=== PATIENT | female | born 1990 | race Caucasian/White ===

== ENCOUNTER 2017-01-31 18:32 | Emergency (ER) | payer MEDICAID ==
[2014-08-22 07:50] VITALS: BMI 32.8
[~2017-01-31 18:32] MED LIST: IBUPROFEN600 MG PO; PERCOCET 5-3251 TAB PO
[2017-01-31 19:54] LABS: BASOPHILS 0.1 % (0-2); EOSINOPHILS 3.4 % (0-7); IMMATURE GRANULOCYTES 0.3 % (0-5); LYMPHOCYTES 29.9 % (15-50); MCH 30.3 pg (26.0-34.0); MCHC 33.3 g/dL (31.0-37.0); MCV 90.9 fL (80.0-100.0); MEAN PLATELET VOLUME 10.2 fL (7.4-10.4); MONOCYTES 9.5 % (2-11); NEUTROPHILS 56.8 % (40-80); PLATELET COUNT 267 10x3/uL (130-400); RBC 4.29 10x6/uL (4.00-5.40); RDW 12.5 % (11.5-14.5); WBC 10.2 10x3/uL (4.8-10.8)
[2017-01-31 20:02] LABS: HCG SERUM POSITIVE (NEGATIVE)
[2017-01-31 20:11] LABS: ALBUMIN 3.6 g/dL (3.4-5.0); ALKALINE PHOSPHATASE 58 U/L (46-116); ALT (SGPT) 16 U/L (10-68); BILIRUBIN - TOTAL 0.43 mg/dL (0.2-1.3); CALC OSMOLALITY 276 mosm/kg (275-300); CARBON DIOXIDE 31.3 mmol/L (21.0-32.0); CHLORIDE - SERUM 103 mmol/L (98-107); CREATININE - SERUM 0.6 mg/dL (0.6-1.3); GLUCOSE 87 mg/dL (74-106); POTASSIUM - SERUM 3.7 mmol/L (3.5-5.1); PROTEIN - SERUM 7.5 g/dL (6.4-8.2); SODIUM 139 mmol/L (136-145); UREA NITROGEN 12 mg/dL (7-18); eGFR NON AFRICAN AMERICAN > 90 mL/min (90-120)
[2017-01-31 20:27] LABS: HCG - QUANTITATIVE (MATERNAL) 32593 mIU/mL
== END 2017-01-31 20:15 | disposition home or self-care (01) ==
LOC: D.ER 18:32
PROVIDERS: Family Medicine
DX: O20.0 Threatened abortion (principal)

== ENCOUNTER 2017-03-22 14:36 | Emergency (ER) | payer MEDICAID ==
[2014-08-22 07:50] VITALS: BMI 32.8
[2017-03-22 19:17] LABS: HCG URINE POSITIVE (NEGATIVE)
[2017-03-22 20:58] LABS: BASOPHILS 0.1 % (0-2); EOSINOPHILS 1.1 % (0-7); HEMATOCRIT 36.2 % (36.0-48.0); HEMOGLOBIN 12.3 g/dL (12-16); IMMATURE GRANULOCYTES 0.2 % (0-5); LYMPHOCYTES 28.1 % (15-50); MCH 30.3 pg (26.0-34.0); MCV 89.2 fL (80.0-100.0); MEAN PLATELET VOLUME 9.9 fL (7.4-10.4); MONOCYTES 6.6 % (2-11); NEUTROPHILS 63.9 % (40-80); PLATELET COUNT 246 10x3/uL (130-400); RBC 4.06 10x6/uL (4.00-5.40); RDW 12.7 % (11.5-14.5); WBC 10.3 10x3/uL (4.8-10.8)
[2017-03-22 21:29] LABS: ALBUMIN 3.5 g/dL (3.4-5.0); ALKALINE PHOSPHATASE 51 U/L (46-116); ALT (SGPT) 26 U/L (10-68); CALC OSMOLALITY 277 mosm/kg (275-300); CALCIUM 9.1 mg/dL (8.5-10.1); CARBON DIOXIDE 27.9 mmol/L (21.0-32.0); CHLORIDE - SERUM 104 mmol/L (98-107); CREATININE - SERUM 0.5 mg/dL (0.6-1.3); GLUCOSE 85 mg/dL (74-106); POTASSIUM - SERUM 3.6 mmol/L (3.5-5.1); PROTEIN - SERUM 7.3 g/dL (6.4-8.2); SODIUM 141 mmol/L (136-145); UREA NITROGEN 8 mg/dL (7-18); eGFR NON AFRICAN AMERICAN > 90 mL/min (90-120)
[2017-03-22 21:56] LABS: HCG - QUANTITATIVE (MATERNAL) 30651 mIU/mL
== END 2017-03-22 22:49 | disposition home or self-care (01) ==
LOC: D.ER 14:36
PROVIDERS: Emergency Medicine
DX: O26.891 Other specified pregnancy related conditions, first trimester (principal); Z3A.13 13 weeks gestation of pregnancy; R10.9 Unspecified abdominal pain; V43.62XA Car passenger injured in collision with other type car in traffic accident, initial encounter; Y93.89 Activity, other specified; Y92.410 Unspecified street and highway as the place of occurrence of the external cause; M54.5 Low back pain

== ENCOUNTER 2017-04-05 08:42 | Emergency (ER) | payer MEDICAID ==
[2014-08-22 07:50] VITALS: BMI 32.8
[2017-04-05 09:14] LABS: BASOPHILS 0.1 % (0-2); EOSINOPHILS 1.4 % (0-7); HEMATOCRIT 37.1 % (36.0-48.0); HEMOGLOBIN 12.3 g/dL (12-16); IMMATURE GRANULOCYTES 0.3 % (0-5); LYMPHOCYTES 25.7 % (15-50); MCH 30.1 pg (26.0-34.0); MCHC 33.2 g/dL (31.0-37.0); MCV 90.7 fL (80.0-100.0); MEAN PLATELET VOLUME 9.6 fL (7.4-10.4); MONOCYTES 7.7 % (2-11); NEUTROPHILS 64.8 % (40-80); PLATELET COUNT 224 10x3/uL (130-400); RBC 4.09 10x6/uL (4.00-5.40); RDW 12.7 % (11.5-14.5); WBC 7.3 10x3/uL (4.8-10.8)
[2017-04-05 09:56] LABS: APPEARANCE SLT CLOUDY (CLEAR); BILIRUBIN NEGATIVE (NEGATIVE); COLOR DK YELLOW (YELLOW); GLUCOSE NEGATIVE (NEGATIVE); KETONE NEGATIVE (NEGATIVE); NITRITE POSITIVE (NEGATIVE); PROTEIN NEGATIVE (NEGATIVE)
[2017-04-05 09:57] LABS: BACTERIA MODERATE /hpf (NONE SEEN); EPITHELIAL CELLS 0-5 /hpf (0-5); WHITE CELLS - URINE 0-5 /hpf (0-5)
== END 2017-04-05 13:17 | disposition home or self-care (01) ==
LOC: D.ER 08:42
PROVIDERS: Emergency Medicine
DX: N39.0 Urinary tract infection, site not specified (principal); R51 Headache; W19.XXXA Unspecified fall, initial encounter; Y93.89 Activity, other specified; Y92.019 Unspecified place in single-family (private) house as the place of occurrence of the external cause

== ENCOUNTER 2017-04-14 11:54 | Emergency (ER) | payer MEDICAID ==
[2014-08-22 07:50] VITALS: BMI 32.8
[2017-04-14 13:06] LABS: HCG URINE POSITIVE (NEGATIVE)
[2017-04-14 13:21] LABS: APPEARANCE CLEAR (CLEAR); BACTERIA FEW /hpf (NONE SEEN); BILIRUBIN NEGATIVE (NEGATIVE); COLOR YELLOW (YELLOW); EPITHELIAL CELLS 0-5 /hpf (0-5); GLUCOSE NEGATIVE (NEGATIVE); KETONE MODERATE mg/dL (NEGATIVE); NITRITE NEGATIVE (NEGATIVE); PROTEIN NEGATIVE (NEGATIVE); UROBILINOGEN NORMAL (NORMAL); WHITE CELLS - URINE 0-5 /hpf (0-5)
[2017-04-14 13:22] LABS: MUCUS <1+ /lpf (NONE SEEN)
== END 2017-04-14 13:35 | disposition home or self-care (01) ==
LOC: D.ER 11:54
PROVIDERS: Nurse Practitioner Family
DX: Z32.01 Encounter for pregnancy test, result positive (principal)

== ENCOUNTER 2017-05-18 16:38 | Emergency (ER) | payer MEDICAID ==
[2014-08-22 07:50] VITALS: BMI 32.8
[2017-05-18 17:34] LABS: BASOPHILS 0.1 % (0-2); EOSINOPHILS 0.1 % (0-7); HEMATOCRIT 39.2 % (36.0-48.0); IMMATURE GRANULOCYTES 0.4 % (0-5); MCH 30.2 pg (26.0-34.0); MCHC 33.2 g/dL (31.0-37.0); MCV 91.2 fL (80.0-100.0); MEAN PLATELET VOLUME 10.3 fL (7.4-10.4); MONOCYTES 4.1 % (2-11); NEUTROPHILS 83.3 % (40-80); PLATELET COUNT 255 10x3/uL (130-400); RDW 12.6 % (11.5-14.5); WBC 14.8 10x3/uL (4.8-10.8)
[2017-05-18 17:47] LABS: ALBUMIN 3.4 g/dL (3.4-5.0); ALKALINE PHOSPHATASE 67 U/L (46-116); ALT (SGPT) 23 U/L (10-68); BILIRUBIN - TOTAL 0.69 mg/dL (0.2-1.3); CALC OSMOLALITY 279 mosm/kg (275-300); CALCIUM 8.9 mg/dL (8.5-10.1); CARBON DIOXIDE 25.6 mmol/L (21.0-32.0); CHLORIDE - SERUM 105 mmol/L (98-107); CREATININE - SERUM 0.7 mg/dL (0.6-1.3); GLUCOSE 116 mg/dL (74-106); POTASSIUM - SERUM 4.1 mmol/L (3.5-5.1); PROTEIN - SERUM 7.8 g/dL (6.4-8.2); SODIUM 141 mmol/L (136-145); UREA NITROGEN 8 mg/dL (7-18); eGFR NON AFRICAN AMERICAN > 90 mL/min (90-120)
[2017-05-18 18:24] LABS: APPEARANCE HAZY (CLEAR); BACTERIA MANY /hpf (NONE SEEN); BILIRUBIN NEGATIVE (NEGATIVE); COLOR DK YELLOW (YELLOW); EPITHELIAL CELLS 0-5 /hpf (0-5); GLUCOSE NEGATIVE (NEGATIVE); KETONE MODERATE mg/dL (NEGATIVE); NITRITE POSITIVE (NEGATIVE); PROTEIN TRACE mg/dL (NEGATIVE); RED CELLS - URINE 0-5 /hpf (0-5); SPECIFIC GRAVITY 1.025 (1.005-1.020); UROBILINOGEN NORMAL (NORMAL)
== END 2017-05-18 19:20 | disposition home or self-care (01) ==
LOC: D.ER 16:38
PROVIDERS: Emergency Medicine
DX: O26.891 Other specified pregnancy related conditions, first trimester (principal); Z3A.13 13 weeks gestation of pregnancy; Y04.2XXA Assault by strike against or bumped into by another person, initial encounter; Y93.89 Activity, other specified; Y92.019 Unspecified place in single-family (private) house as the place of occurrence of the external cause

== ENCOUNTER → 2017-06-15 17:35 | Outpatient (CLI) | payer MEDICAID ==
[2014-08-22 07:50] VITALS: BMI 32.8
[2017-06-15 18:43] LABS: APPEARANCE CLEAR (CLEAR); BILIRUBIN NEGATIVE (NEGATIVE); COLOR YELLOW (YELLOW); GLUCOSE NEGATIVE (NEGATIVE); KETONE NEGATIVE (NEGATIVE); NITRITE NEGATIVE (NEGATIVE); PROTEIN NEGATIVE (NEGATIVE); SPECIFIC GRAVITY 1.015 (1.005-1.020); UROBILINOGEN NORMAL (NORMAL)
== END | disposition home or self-care (01) ==
LOC: D.LDO 17:35
PROVIDERS: Obstetrics & Gynecology
DX: O26.892 Other specified pregnancy related conditions, second trimester (principal); Z3A.24 24 weeks gestation of pregnancy

== ENCOUNTER → 2017-07-07 09:15 | Outpatient (CLI) | payer MEDICAID ==
[2014-08-22 07:50] VITALS: BMI 32.8
== END | disposition home or self-care (01) ==
LOC: D.LDO 09:15
DX: O26.893 Other specified pregnancy related conditions, third trimester (principal); Z3A.28 28 weeks gestation of pregnancy

== ENCOUNTER → 2017-08-02 18:54 | Outpatient (CLI) | payer MEDICAID ==
[2014-08-22 07:50] VITALS: BMI 32.8
[2017-08-02 20:19] LABS: APPEARANCE CLEAR (CLEAR); BILIRUBIN NEGATIVE (NEGATIVE); COLOR YELLOW (YELLOW); GLUCOSE NEGATIVE (NEGATIVE); KETONE NEGATIVE (NEGATIVE); NITRITE NEGATIVE (NEGATIVE); PROTEIN NEGATIVE (NEGATIVE); UROBILINOGEN NORMAL (NORMAL)
[2017-08-02 20:20] LABS: EPITHELIAL CELLS OCC /hpf (0-5); RED CELLS - URINE OCC /hpf (0-5); WHITE CELLS - URINE 0-5 /hpf (0-5)
[2017-08-02 20:21] LABS: BACTERIA FEW /hpf (NONE SEEN)
== END | disposition home or self-care (01) ==
LOC: D.LDO 18:54
PROVIDERS: Obstetrics & Gynecology
DX: O26.899 Other specified pregnancy related conditions, unspecified trimester (principal); Z3A.00 Weeks of gestation of pregnancy not specified

== ENCOUNTER → 2017-08-11 11:15 | Outpatient (CLI) | payer MEDICAID ==
[2014-08-22 07:50] VITALS: BMI 32.8
[2017-08-11 13:40] LABS: APPEARANCE CLEAR (CLEAR); BILIRUBIN NEGATIVE (NEGATIVE); COLOR YELLOW (YELLOW); GLUCOSE NEGATIVE (NEGATIVE); KETONE NEGATIVE (NEGATIVE); NITRITE NEGATIVE (NEGATIVE); PROTEIN NEGATIVE (NEGATIVE)
== END | disposition home or self-care (01) ==
LOC: D.LDO 11:15
PROVIDERS: Obstetrics & Gynecology
DX: O26.893 Other specified pregnancy related conditions, third trimester (principal); R10.30 Lower abdominal pain, unspecified

== ENCOUNTER → 2017-08-11 17:40 | Outpatient (CLI) | payer MEDICAID ==
[2014-08-22 07:50] VITALS: BMI 32.8
== END | disposition home or self-care (01) ==
LOC: D.LDO 17:40
DX: O26.893 Other specified pregnancy related conditions, third trimester (principal); Z3A.33 33 weeks gestation of pregnancy

== ENCOUNTER → 2017-08-19 18:41 | Outpatient (CLI) | payer MEDICAID ==
[2014-08-22 07:50] VITALS: BMI 32.8
[~2017-08-19 18:41] MED LIST changes: +TYLENOL W/CODEI1 TAB PO; +VOLTAREN75 MG PO
[2017-08-19 20:07] LABS: APPEARANCE CLEAR (CLEAR); BILIRUBIN NEGATIVE (NEGATIVE); COLOR YELLOW (YELLOW); GLUCOSE NEGATIVE (NEGATIVE); KETONE NEGATIVE (NEGATIVE); NITRITE NEGATIVE (NEGATIVE); PROTEIN NEGATIVE (NEGATIVE); SPECIFIC GRAVITY 1.025 (1.005-1.020)
[2017-08-19 20:09] LABS: RED CELLS - URINE 0-5 /hpf (0-5); WHITE CELLS - URINE 0-5 /hpf (0-5)
[2017-08-19 20:10] LABS: BACTERIA MANY /hpf (NONE SEEN); MUCUS <1+ /lpf (NONE SEEN)
== END | disposition home or self-care (01) ==
LOC: D.LDO 18:41
PROVIDERS: Obstetrics & Gynecology
DX: O26.853 Spotting complicating pregnancy, third trimester (principal); Z3A.35 35 weeks gestation of pregnancy

== ENCOUNTER 2017-08-22 20:00 | Outpatient (CLI) | payer MEDICAID ==
[2014-08-22 07:50] VITALS: BMI 32.8
[~2017-08-22 20:00] MED LIST changes: -TYLENOL W/CODEI1 TAB PO; -VOLTAREN75 MG PO
[2017-08-22 21:06] LABS: APPEARANCE CLEAR (CLEAR); BILIRUBIN NEGATIVE (NEGATIVE); COLOR YELLOW (YELLOW); GLUCOSE NEGATIVE (NEGATIVE); KETONE NEGATIVE (NEGATIVE); NITRITE NEGATIVE (NEGATIVE); PROTEIN NEGATIVE (NEGATIVE); SPECIFIC GRAVITY 1.015 (1.005-1.020); UROBILINOGEN NORMAL (NORMAL)
[2017-08-22 21:08] LABS: RED CELLS - URINE OCC /hpf (0-5); WHITE CELLS - URINE OCC /hpf (0-5)
== END 2017-08-22 21:27 ==
LOC: D.LDO 20:00
PROVIDERS: Obstetrics & Gynecology
DX: O26.893 Other specified pregnancy related conditions, third trimester (principal); Z3A.34 34 weeks gestation of pregnancy

== ENCOUNTER → 2017-09-09 21:54 | Outpatient (CLI) | payer MEDICAID ==
[2014-08-22 07:50] VITALS: BMI 32.8
[~2017-09-09 21:54] MED LIST changes: +TYLENOL W/CODEI1 TAB PO; +VOLTAREN75 MG PO
== END | disposition home or self-care (01) ==
LOC: D.LDO 21:54
DX: O26.893 Other specified pregnancy related conditions, third trimester (principal); Z3A.38 38 weeks gestation of pregnancy

== ENCOUNTER 2017-09-12 19:26 | Outpatient (CLI) | payer MEDICAID ==
[2014-08-22 07:50] VITALS: BMI 32.8
[~2017-09-12 19:26] MED LIST changes: -TYLENOL W/CODEI1 TAB PO; -VOLTAREN75 MG PO
[2017-09-12 20:18] LABS: APPEARANCE CLEAR (CLEAR); BILIRUBIN NEGATIVE (NEGATIVE); COLOR YELLOW (YELLOW); GLUCOSE NEGATIVE (NEGATIVE); KETONE NEGATIVE (NEGATIVE); NITRITE NEGATIVE (NEGATIVE); PROTEIN NEGATIVE (NEGATIVE); UROBILINOGEN NORMAL (NORMAL)
== END 2017-09-12 20:40 ==
LOC: D.LDO 19:26
PROVIDERS: Obstetrics & Gynecology
DX: O26.893 Other specified pregnancy related conditions, third trimester (principal); Z3A.38 38 weeks gestation of pregnancy

== ENCOUNTER → 2017-09-15 14:35 | Outpatient (CLI) | payer MEDICAID ==
[2014-08-22 07:50] VITALS: BMI 32.8
[~2017-09-15 14:35] MED LIST changes: +TYLENOL W/CODEI1 TAB PO; +VOLTAREN75 MG PO
[2017-09-15 15:37] LABS: APPEARANCE HAZY (CLEAR); BILIRUBIN NEGATIVE (NEGATIVE); COLOR YELLOW (YELLOW); GLUCOSE NEGATIVE (NEGATIVE); KETONE NEGATIVE (NEGATIVE); NITRITE NEGATIVE (NEGATIVE); PROTEIN NEGATIVE (NEGATIVE); SPECIFIC GRAVITY 1.015 (1.005-1.020)
[2017-09-15 15:44] LABS: MUCUS <1+ /lpf (NONE SEEN)
[2017-09-15 15:47] LABS: BACTERIA MODERATE /hpf (NONE SEEN); RED CELLS - URINE 0-5 /hpf (0-5)
== END | disposition home or self-care (01) ==
LOC: D.LDO 14:35
PROVIDERS: Obstetrics & Gynecology
DX: O26.853 Spotting complicating pregnancy, third trimester (principal); Z3A.38 38 weeks gestation of pregnancy

== ENCOUNTER → 2017-09-17 15:54 | Outpatient (CLI) | payer MEDICAID ==
[2014-08-22 07:50] VITALS: BMI 32.8
== END | disposition home or self-care (01) ==
LOC: D.LDO 15:54
DX: O26.893 Other specified pregnancy related conditions, third trimester (principal); Z3A.39 39 weeks gestation of pregnancy

== ENCOUNTER 2017-09-20 01:48 | Inpatient (IN) | payer MEDICAID ==
[~2017-09-20] VITALS: Ht 162.6 cm; Wt 84.4 kg
--- NOTE | ~2017-09-20 | DS ---
PATIENT:SAFIA ANDERSON :86 MEDICAL RECORD: [id number] DISCHARGE SUMMARY ADMISSION DATE: 09/20/17 DISCHARGE DATE: 09/21/17 DATE OF ADMISSION: 09/20/2017 DATE OF DISCHARGE: 09/21/2017 ADMISSION DIAGNOSIS: Term in labor. DISCHARGE DIAGNOSIS: Term , delivered. PROCEDURE: Vaginal delivery. ATTENDING: Raina Mixon MD HISTORY OF PRESENT ILLNESS: See the H&P. SUMMARY OF HOSPITALIZATION: The patient was admitted to the hospital and then had subsequent vaginal delivery without complication. The patient did well on the day #1 and was discharged home. The patient has been given standard precautions and plans on using an IUD for contraception. The fundus is found to be below the umbilicus and firm. She will follow up [facility] TRANSINT:[id number] Voice Confirmation ID: [id number] DOCUMENT ID: [id number] RAINA MIXON MD at 1803 CC: [id number] DICTATION DATE: 09/21/17 1234 INSPECTOR CASING: 09/21/17 1247 DIS IN 09/21/17 [place] [id number] [place] [id number]
--- NOTE | ~2017-09-20 | OP ---
PATIENT NAME: SAFIA ANDERSON MEDICAL RECORD: [id number] :[birth year] [facility] ADMISSION DATE:09/20/17 SURGEON: BEN MIXON MD DATE OF OPERATION: 09/20/2017 DELIVERY NOTE PREDELIVERY DIAGNOSIS: Mother at term. POSTDELIVERY DIAGNOSIS: Mother delivered at term. PROCEDURE: Induction of labor with vaginal delivery. ATTENDING: Ben Mixon MD ANESTHETIC: Continuous lumbar epidural. FINDINGS: Viable male infant, KEYON presentation, Apgars 9 and 9. Weight is still pending at the time of this dictation. Placenta is spontaneous and intact. First-degree laceration without repair. ESTIMATED BLOOD LOSS: 300 cc. DISPOSITION: Mother and recovered in the room. TRANSINT:[id number] Voice Confirmation ID: [id number] DOCUMENT ID: [id number] BEN MIXON MD at 1952 CC: [id number] DICTATION DATE: 09/20/17 1340 CUT IN WORKER: 09/20/17 [address] [facility] [address] [place] [address]
[~2017-09-20 01:48] MED LIST changes: -TYLENOL W/CODEI1 TAB PO; -VOLTAREN75 MG PO
[2017-09-20 04:32] VITALS: BP 119/78; Ht 162.6 cm; Wt 84.4 kg
[2017-09-20 04:43] LABS: HEMATOCRIT 34.1 % (36.0-48.0); MCH 27.5 pg (26.0-34.0); MCHC 32.3 g/dL (31.0-37.0); MCV 85.3 fL (80.0-100.0); MEAN PLATELET VOLUME 11.2 fL (7.4-10.4); RDW 13.3 % (11.5-14.5); WBC 9.7 10x3/uL (4.8-10.8)
[2017-09-20 07:00] LABS: UDS - AMPHET NEGATIVE QUAL (NEGATIVE); UDS - BARB NEGATIVE QUAL (NEGATIVE); UDS - BENZO NEGATIVE QUAL (NEGATIVE); UDS - COCAINE NEGATIVE QUAL (NEGATIVE); UDS - OPIATE NEGATIVE QUAL (NEGATIVE); UDS - PCP NEGATIVE QUAL (NEGATIVE); UDS - THC NEGATIVE QUAL (NEGATIVE)
[2017-09-20 07:13] LABS: APPEARANCE HAZY (CLEAR); BILIRUBIN NEGATIVE (NEGATIVE); COLOR DK YELLOW (YELLOW); GLUCOSE NEGATIVE (NEGATIVE); KETONE NEGATIVE (NEGATIVE); NITRITE NEGATIVE (NEGATIVE); PROTEIN NEGATIVE (NEGATIVE); RED CELLS - URINE OCC /hpf (0-5); SPECIFIC GRAVITY 1.015 (1.005-1.020); WHITE CELLS - URINE 0-5 /hpf (0-5)
[2017-09-20 07:14] LABS: BACTERIA MODERATE /hpf (NONE SEEN); CALCIUM OXALATE CRYSTALS 0-5 /hpf (NONE SEEN); MUCUS >1+ /lpf (NONE SEEN)
[2017-09-20 21:00] VITALS: BP 127/84
[2017-09-21 06:58] LABS: BASOPHILS 0.1 % (0-2); EOSINOPHILS 1.1 % (0-7); HEMOGLOBIN 9.4 g/dL (12-16); IMMATURE GRANULOCYTES 0.4 % (0-5); LYMPHOCYTES 27.3 % (15-50); MCH 26.8 pg (26.0-34.0); MCHC 31.3 g/dL (31.0-37.0); MCV 85.5 fL (80.0-100.0); MEAN PLATELET VOLUME 11.2 fL (7.4-10.4); MONOCYTES 8.4 % (2-11); NEUTROPHILS 62.7 % (40-80); PLATELET COUNT 174 10x3/uL (130-400); RBC 3.51 10x6/uL (4.00-5.40); RDW 13.3 % (11.5-14.5); WBC 11.2 10x3/uL (4.8-10.8)
[2017-09-21 07:12] VITALS: BP 116/71
[2017-09-21 07:31] LABS: RAPID PLASMA REAGIN Non Reactive (Non Reactive)
== END 2017-09-21 16:30 | disposition home or self-care (01) | DRG 775 ==
LOC: D.LD 01:48 → D.WS 04:00 → D.LD 04:00 → D.WS 18:00
PROVIDERS: Obstetrics & Gynecology
PROC: 10E0XZZ Delivery of Products of Conception, External Approach (ICD-10-PCS; principal; 2017-09-20)
DX: O70.0 First degree perineal laceration during delivery (principal); Z3A.39 39 weeks gestation of pregnancy; Z37.0 Single live birth

== ENCOUNTER 2017-11-12 17:47 | Emergency (ER) | payer MEDICAID ==
[~2017-11-12] VITALS: Ht 165.1 cm; Wt 72.7 kg
[2017-11-12 17:50] VITALS: Ht 165.1 cm; Wt 72.7 kg
[2017-11-12] MEDS ORDERED: TYLENOL W/CODEI1 TAB PO (19:38)
[2017-11-12] MEDS ORDERED: VOLTAREN75 MG PO (19:38)
[2017-11-12 20:28] VITALS: BP 123/79
== END 2017-11-12 20:29 | disposition home or self-care (01) ==
LOC: D.ER 17:47
DX: S82.002A Unspecified fracture of left patella, initial encounter for closed fracture (principal); V49.9XXA Car occupant (driver) (passenger) injured in unspecified traffic accident, initial encounter; Y93.89 Activity, other specified; Y92.410 Unspecified street and highway as the place of occurrence of the external cause; K21.9 Gastro-esophageal reflux disease without esophagitis

== ENCOUNTER 2018-02-22 18:36 | Inpatient (IN) | payer MEDICAID ==
[~2018-02-22] VITALS: Ht 165.1 cm; Wt 59.1 kg
[~2018-02-22 18:36] MED LIST changes: +TYLENOL W/CODEI1 TAB PO; +VOLTAREN75 MG PO
[2018-02-22 21:37] LABS: BASOPHILS 0.1 % (0-2); HEMATOCRIT 40.2 % (36.0-48.0); HEMOGLOBIN 13.3 g/dL (12-16); IMMATURE GRANULOCYTES 0.3 % (0-5); LYMPHOCYTES 25.1 % (15-50); MCH 29.3 pg (26.0-34.0); MCHC 33.1 g/dL (31.0-37.0); MCV 88.5 fL (80.0-100.0); MEAN PLATELET VOLUME 10.5 fL (7.4-10.4); MONOCYTES 6.4 % (2-11); NEUTROPHILS 67.1 % (40-80); RBC 4.54 10x6/uL (4.00-5.40); RDW 12.4 % (11.5-14.5); WBC 15.2 10x3/uL (4.8-10.8)
[2018-02-22 21:42] LABS: PLATELET COUNT 297 10x3/uL (130-400)
[2018-02-22 21:51] LABS: ALBUMIN 3.6 g/dL (3.4-5.0); ALKALINE PHOSPHATASE 58 U/L (46-116); ALT (SGPT) 19 U/L (10-68); BILIRUBIN - TOTAL 0.71 mg/dL (0.2-1.3); CALC OSMOLALITY 279 mosm/kg (275-300); CALCIUM 8.9 mg/dL (8.5-10.1); CARBON DIOXIDE 26.4 mmol/L (21.0-32.0); CHLORIDE - SERUM 104 mmol/L (98-107); CREATININE - SERUM 0.7 mg/dL (0.6-1.3); GLUCOSE 92 mg/dL (74-106); POTASSIUM - SERUM 3.8 mmol/L (3.5-5.1); PROTEIN - SERUM 7.7 g/dL (6.4-8.2); SODIUM 140 mmol/L (136-145); UREA NITROGEN 14 mg/dL (7-18); eGFR NON AFRICAN AMERICAN > 90 mL/min (90-120)
[2018-02-22 21:52] LABS: C-REACTIVE PROTEIN 0.2 mg/dL (0.0-0.9)
[2018-02-22 22:19] LABS: INR 1.06 (0.85-1.17); PROTIME 13.3 SECONDS (11.6-15.0)
[2018-02-23] VITALS (7 sets, daily range): BP systolic 99–120; BP diastolic 56–72; Ht 165.1 cm; Wt 59.1 kg
[2018-02-23 06:21] LABS: BASOPHILS 0 % (0-2); EOSINOPHILS 2.1 % (0-7); HEMATOCRIT 36.7 % (36.0-48.0); HEMOGLOBIN 11.9 g/dL (12-16); IMMATURE GRANULOCYTES 0.2 % (0-5); LYMPHOCYTES 40.7 % (15-50); MCHC 32.4 g/dL (31.0-37.0); MCV 89.3 fL (80.0-100.0); MEAN PLATELET VOLUME 10.6 fL (7.4-10.4); MONOCYTES 8.3 % (2-11); NEUTROPHILS 48.7 % (40-80); PLATELET COUNT 267 10x3/uL (130-400); RBC 4.11 10x6/uL (4.00-5.40); RDW 12.5 % (11.5-14.5)
[2018-02-23 06:26] LABS: INR 1.07 (0.85-1.17); PROTIME 13.4 SECONDS (11.6-15.0)
[2018-02-23 06:27] LABS: CALC OSMOLALITY 281 mosm/kg (275-300); CALCIUM 8.6 mg/dL (8.5-10.1); CARBON DIOXIDE 27.4 mmol/L (21.0-32.0); CHLORIDE - SERUM 106 mmol/L (98-107); CREATININE - SERUM 0.7 mg/dL (0.6-1.3); GLUCOSE 94 mg/dL (74-106); POTASSIUM - SERUM 3.9 mmol/L (3.5-5.1); SODIUM 141 mmol/L (136-145); UREA NITROGEN 15 mg/dL (7-18); eGFR NON AFRICAN AMERICAN > 90 mL/min (90-120)
[2018-02-23 06:34] LABS: WBC 8.7 10x3/uL (4.8-10.8)
[2018-02-23 08:01] LABS: HCG SERUM NEGATIVE (NEGATIVE)
[2018-02-24] VITALS: BP 103/63
[2018-02-24 04:00] VITALS: BP 105/58
[2018-02-24 08:29] VITALS: BP 109/70
[2018-02-24 10:04] LABS: CALC OSMOLALITY 286 mosm/kg (275-300); CALCIUM 8.5 mg/dL (8.5-10.1); CARBON DIOXIDE 27.6 mmol/L (21.0-32.0); CHLORIDE - SERUM 109 mmol/L (98-107); CREATININE - SERUM 0.7 mg/dL (0.6-1.3); GLUCOSE 109 mg/dL (74-106); POTASSIUM - SERUM 3.5 mmol/L (3.5-5.1); SODIUM 144 mmol/L (136-145); eGFR NON AFRICAN AMERICAN > 90 mL/min (90-120)
[2018-02-24 10:05] LABS: UREA NITROGEN 11 mg/dL (7-18)
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
[2018-02-24] MEDS ORDERED: MIRALAX17 GM PO (11:10)
[2018-02-24] MEDS ORDERED: HYDROCODON-ACE1 EAC7 PO (11:10)
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
== END 2018-02-24 17:17 | disposition home or self-care (01) | DRG 517 ==
LOC: D.ER 18:36 → D.MS 21:26 → D.EDHOLD 21:26 → D.MS 21:33
PROVIDERS: Family Medicine; Orthopaedic Surgery; ADMIT Internal Medicine Nephrology
PROC: 0QSF04Z Reposition Left Patella with Internal Fixation Device, Open Approach (ICD-10-PCS; principal; 2018-02-23 08:15)
DX: S82.092A Other fracture of left patella, initial encounter for closed fracture (principal); W19.XXXA Unspecified fall, initial encounter; S06.890S Other specified intracranial injury without loss of consciousness, sequela; D64.9 Anemia, unspecified; E66.9 Obesity, unspecified; R50.82 Postprocedural fever; Z68.21 Body mass index [BMI] 21.0-21.9, adult

== ENCOUNTER 2018-02-26 15:59 | Emergency (ER) | payer MEDICAID ==
[~2018-02-26] VITALS: Ht 165.1 cm; Wt 68.2 kg
[~2018-02-26 15:59] MED LIST changes: +HYDROCODON-ACE1 EAC7 PO; +MIRALAX17 GM PO
[2018-02-26 16:45] VITALS: Ht 165.1 cm; Wt 68.2 kg
[2018-02-26 20:22] LABS: BASOPHILS 0.1 % (0-2); EOSINOPHILS 1.9 % (0-7); HEMATOCRIT 40.8 % (36.0-48.0); HEMOGLOBIN 13.5 g/dL (12-16); IMMATURE GRANULOCYTES 0.2 % (0-5); LYMPHOCYTES 30.1 % (15-50); MCH 29.1 pg (26.0-34.0); MCHC 33.1 g/dL (31.0-37.0); MCV 87.9 fL (80.0-100.0); MEAN PLATELET VOLUME 10.5 fL (7.4-10.4); MONOCYTES 7.9 % (2-11); NEUTROPHILS 59.8 % (40-80); RBC 4.64 10x6/uL (4.00-5.40); RDW 12.4 % (11.5-14.5); WBC 8.6 10x3/uL (4.8-10.8)
[2018-02-26 20:24] LABS: PLATELET COUNT 337 10x3/uL (130-400)
[2018-02-26 20:44] LABS: ALBUMIN 3.5 g/dL (3.4-5.0); ALKALINE PHOSPHATASE 62 U/L (46-116); ALT (SGPT) 38 U/L (10-68); BILIRUBIN - TOTAL 0.97 mg/dL (0.2-1.3); C-REACTIVE PROTEIN 1.7 mg/dL (0.0-0.9); CALC OSMOLALITY 281 mosm/kg (275-300); CALCIUM 9.4 mg/dL (8.5-10.1); CARBON DIOXIDE 27.9 mmol/L (21.0-32.0); CHLORIDE - SERUM 104 mmol/L (98-107); CREATININE - SERUM 0.7 mg/dL (0.6-1.3); GLUCOSE 104 mg/dL (74-106); POTASSIUM - SERUM 4.3 mmol/L (3.5-5.1); PROTEIN - SERUM 7.9 g/dL (6.4-8.2); SODIUM 141 mmol/L (136-145); UREA NITROGEN 16 mg/dL (7-18); eGFR NON AFRICAN AMERICAN > 90 mL/min (90-120)
[2018-02-26] MEDS ORDERED: NORCO 10-325 TA1 TAB PO (21:17)
[2018-02-26 22:00] VITALS: BP 117/86
== END 2018-02-26 22:00 | disposition home or self-care (01) ==
LOC: D.ER 15:59
PROVIDERS: Family Medicine
DX: G89.18 Other acute postprocedural pain (principal); M25.562 Pain in left knee

== ENCOUNTER 2018-03-08 18:57 | Emergency (ER) | payer MEDICAID ==
[~2018-03-08] VITALS: Ht 165.1 cm; Wt 75.0 kg
[~2018-03-08 18:57] MED LIST changes: +NORCO 10-325 TA1 TAB PO
[2018-03-08 19:27] VITALS: Ht 165.1 cm; Wt 75.0 kg
[2018-03-08 22:55] VITALS: BP 135/84
== END 2018-03-08 22:55 | disposition home or self-care (01) ==
LOC: D.ER 18:57
DX: G89.18 Other acute postprocedural pain (principal); Z98.890 Other specified postprocedural states

== ENCOUNTER 2018-03-14 10:26 | Emergency (ER) | payer MEDICAID ==
[~2018-03-14] VITALS: Ht 165.1 cm; Wt 90.9 kg
[2018-03-14 10:31] VITALS: BP 123/55; Ht 165.1 cm; Wt 90.9 kg
== END 2018-03-14 11:19 | disposition home or self-care (01) ==
LOC: D.ER 10:26
DX: S81.012D Laceration without foreign body, left knee, subsequent encounter (principal); X58.XXXD Exposure to other specified factors, subsequent encounter; Z48.02 Encounter for removal of sutures

== ENCOUNTER 2018-05-17 20:08 | Emergency (ER) | payer MEDICAID ==
[~2018-05-17] VITALS: Ht 165.1 cm; Wt 76.3 kg
[2018-05-17 20:32] VITALS: Ht 165.1 cm; Wt 76.3 kg
[2018-05-17 21:19] LABS: BASOPHILS 0.2 % (0-2); EOSINOPHILS 2.5 % (0-7); HEMATOCRIT 37.9 % (36.0-48.0); HEMOGLOBIN 12.3 g/dL (12-16); IMMATURE GRANULOCYTES 0.1 % (0-5); MCH 29.2 pg (26.0-34.0); MCHC 32.5 g/dL (31.0-37.0); MONOCYTES 9.6 % (2-11); NEUTROPHILS 46.6 % (40-80); PLATELET COUNT 285 10x3/uL (130-400); RBC 4.21 10x6/uL (4.00-5.40); RDW 12.3 % (11.5-14.5); WBC 8.7 10x3/uL (4.8-10.8)
[2018-05-17 21:32] LABS: APPEARANCE CLEAR (CLEAR); BILIRUBIN NEGATIVE (NEGATIVE); COLOR YELLOW (YELLOW); GLUCOSE NEGATIVE (NEGATIVE); KETONE NEGATIVE (NEGATIVE); NITRITE NEGATIVE (NEGATIVE); PROTEIN NEGATIVE (NEGATIVE); SPECIFIC GRAVITY 1.015 (1.005-1.020); UROBILINOGEN NORMAL (NORMAL)
[2018-05-17 21:33] LABS: BACTERIA FEW /hpf (NONE SEEN); EPITHELIAL CELLS OCC /hpf (0-5); WHITE CELLS - URINE 0-5 /hpf (0-5)
[2018-05-17 21:36] LABS: ALBUMIN 3.4 g/dL (3.4-5.0); ALKALINE PHOSPHATASE 57 U/L (46-116); ALT (SGPT) 18 U/L (10-68); BILIRUBIN - TOTAL 0.38 mg/dL (0.2-1.3); CALC OSMOLALITY 281 mosm/kg (275-300); CALCIUM 8.7 mg/dL (8.5-10.1); CARBON DIOXIDE 30.3 mmol/L (21.0-32.0); CHLORIDE - SERUM 106 mmol/L (98-107); CREATININE - SERUM 0.6 mg/dL (0.6-1.3); GLUCOSE 96 mg/dL (74-106); POTASSIUM - SERUM 4.5 mmol/L (3.5-5.1); PROTEIN - SERUM 7.1 g/dL (6.4-8.2); SODIUM 142 mmol/L (136-145); UREA NITROGEN 10 mg/dL (7-18); eGFR NON AFRICAN AMERICAN > 90 mL/min (90-120)
[2018-05-17 21:42] LABS: AMYLASE - SERUM 50 U/L (25-115); LIPASE 127 U/L (73-393); TROPONIN-I < 0.017 ng/mL (0.000-0.060)
[2018-05-17 22:02] LABS: HCG URINE NEGATIVE (NEGATIVE)
[2018-05-17] MEDS ORDERED: PROTONIX40 MG PO (23:32)
[2018-05-17 23:48] VITALS: BP 127/72
== END 2018-05-17 23:49 | disposition home or self-care (01) ==
LOC: D.ER 20:08
PROVIDERS: Emergency Medicine
DX: R10.13 Epigastric pain (principal); R11.2 Nausea with vomiting, unspecified

== ENCOUNTER 2018-06-19 11:55 | Emergency (ER) | payer MEDICAID ==
[~2018-06-19] VITALS: Ht 165.1 cm; Wt 72.6 kg
[~2018-06-19 11:55] MED LIST changes: +PROTONIX40 MG PO
[2018-06-19 12:02] VITALS: Ht 165.1 cm; Wt 72.6 kg
[2018-06-19 13:37] LABS: BASOPHILS 0.2 % (0-2); EOSINOPHILS 1.8 % (0-7); HEMATOCRIT 40.9 % (36.0-48.0); HEMOGLOBIN 13.6 g/dL (12-16); IMMATURE GRANULOCYTES 0.2 % (0-5); LYMPHOCYTES 41.2 % (15-50); MCH 29.2 pg (26.0-34.0); MCHC 33.3 g/dL (31.0-37.0); MEAN PLATELET VOLUME 10.5 fL (7.4-10.4); MONOCYTES 11.6 % (2-11); PLATELET COUNT 239 10x3/uL (130-400); RBC 4.65 10x6/uL (4.00-5.40); RDW 12.2 % (11.5-14.5); WBC 6.6 10x3/uL (4.8-10.8)
[2018-06-19 13:50] LABS: ALBUMIN 3.9 g/dL (3.4-5.0); ALKALINE PHOSPHATASE 60 U/L (46-116); ALT (SGPT) 17 U/L (10-68); BILIRUBIN - TOTAL 0.42 mg/dL (0.2-1.3); CALC OSMOLALITY 288 mosm/kg (275-300); CALCIUM 9.2 mg/dL (8.5-10.1); CARBON DIOXIDE 32.3 mmol/L (21.0-32.0); CHLORIDE - SERUM 108 mmol/L (98-107); CREATININE - SERUM 0.7 mg/dL (0.6-1.3); GLUCOSE 93 mg/dL (74-106); PROTEIN - SERUM 7.8 g/dL (6.4-8.2); SODIUM 145 mmol/L (136-145); UREA NITROGEN 12 mg/dL (7-18); eGFR NON AFRICAN AMERICAN > 90 mL/min (90-120)
[2018-06-19 13:57] LABS: HCG - QUANTITATIVE (MATERNAL) 1 mIU/mL
[2018-06-19 17:12] VITALS: BP 110/54
== END 2018-06-19 17:25 | disposition home or self-care (01) ==
LOC: D.ER 11:55
PROVIDERS: Family Medicine
DX: N93.9 Abnormal uterine and vaginal bleeding, unspecified (principal)

== ENCOUNTER 2018-07-12 10:24 | Emergency (ER) | payer MEDICAID ==
[~2018-07-12] VITALS: Ht 165.1 cm; Wt 95.5 kg
[2018-07-12 10:30] VITALS: Ht 165.1 cm; Wt 95.5 kg
[2018-07-12 11:59] LABS: HCG URINE NEGATIVE (NEGATIVE)
[2018-07-12 12:10] VITALS: BP 110/64
== END 2018-07-12 12:11 | disposition home or self-care (01) ==
LOC: D.ER 10:24
PROVIDERS: Family Medicine
DX: N93.9 Abnormal uterine and vaginal bleeding, unspecified (principal)

== ENCOUNTER 2018-08-24 13:16 | Emergency (ER) | payer MEDICAID ==
[2018-07-12 10:30] VITALS: BMI 35.0
== END 2018-08-24 13:35 | disposition left against medical advice (07) ==
LOC: D.ER 13:16
DX: N89.9 Noninflammatory disorder of vagina, unspecified (principal)

== ENCOUNTER 2018-09-27 19:46 | Emergency (ER) | payer MEDICAID ==
[~2018-09-27] VITALS: Ht 165.1 cm; Wt 82.7 kg
[2018-09-27 20:04] VITALS: Ht 165.1 cm; Wt 82.7 kg
[2018-09-27 21:02] LABS: APPEARANCE CLEAR (CLEAR); BILIRUBIN NEGATIVE (NEGATIVE); COLOR YELLOW (YELLOW); GLUCOSE NEGATIVE (NEGATIVE); KETONE NEGATIVE (NEGATIVE); NITRITE NEGATIVE (NEGATIVE); PROTEIN NEGATIVE (NEGATIVE); SPECIFIC GRAVITY 1.025 (1.005-1.020); UROBILINOGEN NORMAL (NORMAL)
[2018-09-27 21:03] LABS: BACTERIA FEW /hpf (NONE SEEN); EPITHELIAL CELLS 0-5 /hpf (0-5); MUCUS <1+ /lpf (NONE SEEN); RED CELLS - URINE OCC /hpf (0-5); WHITE CELLS - URINE 0-5 /hpf (0-5)
[2018-09-27] MEDS ORDERED: MACROBID100 MG PO (21:09)
[2018-09-27 21:20] VITALS: BP 109/85
== END 2018-09-27 21:20 | disposition home or self-care (01) ==
LOC: D.ER 19:46
PROVIDERS: Family Medicine
DX: N39.0 Urinary tract infection, site not specified (principal)

== ENCOUNTER → 2018-10-22 12:24 | Outpatient (CLI) | payer MEDICAID ==
[2018-09-27 20:04] VITALS: BMI 30.3
[~2018-10-22 12:24] MED LIST changes: +MACROBID100 MG PO
[2018-10-22 12:55] LABS: HCG URINE POSITIVE (NEGATIVE)
--- NOTE | 2018-10-22 13:03 | NUR ---
SITTING UP IN ROOM FINISHING LUNCH. VISITORS X 3 IN ROOM. INFANT IN ROOM. NO CURRENT REQUESTS.
== END ==
LOC: D.LDO 12:24
PROVIDERS: ATTEND Obstetrics & Gynecology
DX: O26.899 Other specified pregnancy related conditions, unspecified trimester (principal); Z3A.00 Weeks of gestation of pregnancy not specified; N89.8 Other specified noninflammatory disorders of vagina

== ENCOUNTER 2018-10-26 09:10 | Emergency (ER) | payer MEDICAID ==
[~2018-10-26] VITALS: Ht 165.1 cm; Wt 75.7 kg
[2018-10-26 09:12] VITALS: Ht 165.1 cm; Wt 75.7 kg
[2018-10-26 09:53] LABS: APPEARANCE SL CLDY (CLEAR); BACTERIA MANY /hpf (NONE SEEN); BILIRUBIN NEGATIVE (NEGATIVE); COLOR YELLOW (YELLOW); GLUCOSE NEGATIVE (NEGATIVE); KETONE NEGATIVE (NEGATIVE); MUCUS <1+ /lpf (NONE SEEN); NITRITE POSITIVE (NEGATIVE); PROTEIN NEGATIVE (NEGATIVE); RED CELLS - URINE NONE SEEN /hpf (0-5); WHITE CELLS - URINE 0-5 /hpf (0-5)
[2018-10-26 09:54] LABS: AMORPHOUS SEDIMENT <1+ /lpf (NONE SEEN)
[2018-10-26 10:36] VITALS: BP 136/90
== END 2018-10-26 10:36 | disposition home or self-care (01) ==
LOC: D.ER 09:10
PROVIDERS: Family Medicine
DX: O26.891 Other specified pregnancy related conditions, first trimester (principal); Z3A.11 11 weeks gestation of pregnancy; S39.91XA Unspecified injury of abdomen, initial encounter; W18.30XA Fall on same level, unspecified, initial encounter; Y93.89 Activity, other specified; Y92.019 Unspecified place in single-family (private) house as the place of occurrence of the external cause

== ENCOUNTER 2018-12-17 12:36 | Emergency (ER) | payer MEDICAID ==
[~2018-12-17] VITALS: Ht 165.1 cm; Wt 84.1 kg
[2018-12-17 12:39] VITALS: Ht 165.1 cm; Wt 84.1 kg
[2018-12-17 13:17] LABS: BASOPHILS 0.1 % (0-2); EOSINOPHILS 0.4 % (0-7); HEMATOCRIT 36.8 % (36.0-48.0); HEMOGLOBIN 12.1 g/dL (12-16); IMMATURE GRANULOCYTES 0.4 % (0-5); LYMPHOCYTES 14.5 % (15-50); MCH 30.3 pg (26.0-34.0); MCHC 32.9 g/dL (31.0-37.0); MEAN PLATELET VOLUME 10.2 fL (7.4-10.4); NEUTROPHILS 77.6 % (40-80); PLATELET COUNT 254 10x3/uL (130-400); RDW 12.7 % (11.5-14.5); WBC 10.9 10x3/uL (4.8-10.8)
[2018-12-17 13:23] LABS: UDS - AMPHET NEGATIVE QUAL (NEGATIVE); UDS - BARB NEGATIVE QUAL (NEGATIVE); UDS - BENZO NEGATIVE QUAL (NEGATIVE); UDS - COCAINE NEGATIVE QUAL (NEGATIVE); UDS - OPIATE NEGATIVE QUAL (NEGATIVE); UDS - PCP NEGATIVE QUAL (NEGATIVE); UDS - THC NEGATIVE QUAL (NEGATIVE)
[2018-12-17 13:27] LABS: APPEARANCE HAZY (CLEAR); BILIRUBIN NEGATIVE (NEGATIVE); COLOR YELLOW (YELLOW); GLUCOSE NEGATIVE (NEGATIVE); KETONE SMALL mg/dL (NEGATIVE); NITRITE NEGATIVE (NEGATIVE); PROTEIN 1+ mg/dL (NEGATIVE); UROBILINOGEN NORMAL (NORMAL)
[2018-12-17 13:27] LABS: CALC OSMOLALITY 274 mosm/kg (275-300); CALCIUM 9.2 mg/dL (8.5-10.1); CARBON DIOXIDE 27.3 mmol/L (21.0-32.0); CHLORIDE - SERUM 105 mmol/L (98-107); CREATININE - SERUM 0.5 mg/dL (0.6-1.3); GLUCOSE 88 mg/dL (74-106); POTASSIUM - SERUM 3.9 mmol/L (3.5-5.1); SODIUM 140 mmol/L (136-145); UREA NITROGEN 5 mg/dL (7-18); eGFR NON AFRICAN AMERICAN > 90 mL/min (90-120)
[2018-12-17 13:28] LABS: BACTERIA MODERATE /hpf (NEGATIVE); EPITHELIAL CELLS 25-50 /hpf (0-5); MUCUS >1+ /lpf (NONE SEEN); WHITE CELLS - URINE 0-5 /hpf (NEGATIVE)
[2018-12-17 13:29] LABS: AMORPHOUS SEDIMENT >1+ /lpf (NONE SEEN); GRANULAR CAST 25-50 /lpf (NONE SEEN)
[2018-12-17 13:54] LABS: ALBUMIN 3.3 g/dL (3.4-5.0); ALKALINE PHOSPHATASE 64 U/L (46-116); ALT (SGPT) 21 U/L (10-68); BILIRUBIN - TOTAL 0.71 mg/dL (0.2-1.3); HCG - QUANTITATIVE (MATERNAL) 12866 mIU/mL; PROTEIN - SERUM 7.4 g/dL (6.4-8.2)
[2018-12-17 14:29] VITALS: BP 126/70
== END 2018-12-17 14:30 | disposition home or self-care (01) ==
LOC: D.ER 12:36
PROVIDERS: Family Medicine
DX: O26.892 Other specified pregnancy related conditions, second trimester (principal); Z3A.20 20 weeks gestation of pregnancy; Y04.2XXA Assault by strike against or bumped into by another person, initial encounter

== ENCOUNTER → 2018-12-18 10:04 | Outpatient (CLI) | payer MEDICAID ==
[2018-12-17 12:39] VITALS: BMI 30.8
== END | disposition home or self-care (01) ==
LOC: D.LDO 10:04
PROVIDERS: ATTEND Obstetrics & Gynecology
DX: O26.899 Other specified pregnancy related conditions, unspecified trimester (principal); Z3A.00 Weeks of gestation of pregnancy not specified

== ENCOUNTER → 2019-01-12 09:49 | Outpatient (CLI) | payer MEDICAID ==
[2018-12-17 12:39] VITALS: BMI 30.8
[2019-01-12 10:58] LABS: APPEARANCE HAZY (CLEAR); BILIRUBIN NEGATIVE (NEGATIVE); COLOR YELLOW (YELLOW); EPITHELIAL CELLS 0-5 /hpf (0-5); GLUCOSE NEGATIVE (NEGATIVE); KETONE NEGATIVE (NEGATIVE); NITRITE NEGATIVE (NEGATIVE); PROTEIN NEGATIVE (NEGATIVE); RED CELLS - URINE 0-5 /hpf (0-5); SPECIFIC GRAVITY 1.005 (1.005-1.020); WHITE CELLS - URINE 0-5 /hpf (NEGATIVE)
[2019-01-12 10:59] LABS: BACTERIA MODERATE /hpf (NEGATIVE); MUCUS <1+ /lpf (NONE SEEN)
== END | disposition home or self-care (01) ==
LOC: D.LDO 09:49
PROVIDERS: ATTEND Student in an Organized Health Care Education/Training Program
DX: O26.899 Other specified pregnancy related conditions, unspecified trimester (principal); Z3A.00 Weeks of gestation of pregnancy not specified; Z03.79 Encounter for other suspected maternal and fetal conditions ruled out

== ENCOUNTER 2019-03-01 18:24 | Outpatient (CLI) | payer MEDICAID ==
[2018-12-17 12:39] VITALS: BMI 30.8
[2019-03-01 18:55] LABS: APPEARANCE CLEAR (CLEAR); BILIRUBIN NEGATIVE (NEGATIVE); COLOR YELLOW (YELLOW); GLUCOSE NEGATIVE (NEGATIVE); KETONE NEGATIVE (NEGATIVE); NITRITE NEGATIVE (NEGATIVE); PROTEIN NEGATIVE (NEGATIVE); UROBILINOGEN NORMAL (NORMAL)
== END 2019-03-01 19:45 | disposition home or self-care (01) ==
LOC: D.LDO 18:24
PROVIDERS: ATTEND Student in an Organized Health Care Education/Training Program
DX: O26.899 Other specified pregnancy related conditions, unspecified trimester (principal); Z3A.00 Weeks of gestation of pregnancy not specified; R10.9 Unspecified abdominal pain

== ENCOUNTER → 2019-03-12 09:49 | Outpatient (CLI) | payer MEDICAID ==
[2018-12-17 12:39] VITALS: BMI 30.8
== END | disposition home or self-care (01) ==
LOC: D.LDO 09:49
PROVIDERS: ATTEND Student in an Organized Health Care Education/Training Program
DX: O47.1 False labor at or after 37 completed weeks of gestation (principal); Z3A.30 30 weeks gestation of pregnancy

== ENCOUNTER 2019-04-16 12:33 | Outpatient (CLI) | payer MEDICAID ==
[2018-12-17 12:39] VITALS: BMI 30.8
[2019-04-16 13:28] LABS: BASOPHILS 0.1 % (0-2); EOSINOPHILS 0.7 % (0-7); HEMATOCRIT 32.9 % (36.0-48.0); HEMOGLOBIN 10.3 g/dL (12-16); IMMATURE GRANULOCYTES 0.9 % (0-5); LYMPHOCYTES 19.9 % (15-50); MCH 26.1 pg (26.0-34.0); MCHC 31.3 g/dL (31.0-37.0); MCV 83.5 fL (80.0-100.0); MEAN PLATELET VOLUME 10.7 fL (7.4-10.4); MONOCYTES 8.3 % (2-11); NEUTROPHILS 70.1 % (40-80); PLATELET COUNT 223 10x3/uL (130-400); RBC 3.94 10x6/uL (4.00-5.40); RDW 13.4 % (11.5-14.5); WBC 10.7 10x3/uL (4.8-10.8)
[2019-04-16 13:35] LABS: CALC OSMOLALITY 275 mosm/kg (275-300); CALCIUM 9.1 mg/dL (8.5-10.1); CHLORIDE - SERUM 105 mmol/L (98-107); CREATININE - SERUM 0.5 mg/dL (0.6-1.3); GLUCOSE 78 mg/dL (74-106); POTASSIUM - SERUM 3.8 mmol/L (3.5-5.1); SODIUM 140 mmol/L (136-145); UREA NITROGEN 6 mg/dL (7-18); eGFR NON AFRICAN AMERICAN > 90 mL/min (90-120)
[2019-04-16 13:41] LABS: ALBUMIN 2.6 g/dL (3.4-5.0); ALKALINE PHOSPHATASE 206 U/L (30-120); ALT (SGPT) 41 U/L (10-68); BILIRUBIN - DIRECT 0.18 mg/dL (0.00-0.30); BILIRUBIN - INDIRECT 0.54 mg/dL (0.00-1.00); BILIRUBIN - TOTAL 0.72 mg/dL (0.2-1.3); PROTEIN - SERUM 6.7 g/dL (6.4-8.2); URIC ACID 3.3 mg/dL (2.6-7.2)
[2019-04-16 13:42] LABS: BILIRUBIN NEGATIVE (NEGATIVE); GLUCOSE NEGATIVE (NEGATIVE); KETONE NEGATIVE (NEGATIVE); NITRITE NEGATIVE (NEGATIVE)
[2019-04-16 13:46] LABS: RED CELLS - URINE 0-5 /hpf (0-5); WHITE CELLS - URINE 0-5 /hpf (NEGATIVE)
[2019-04-16 13:47] LABS: BACTERIA FEW /hpf (NEGATIVE)
== END 2019-04-16 16:30 | disposition home or self-care (01) ==
LOC: D.LDO 12:33
PROVIDERS: ATTEND Student in an Organized Health Care Education/Training Program
DX: O26.893 Other specified pregnancy related conditions, third trimester (principal); Z3A.36 36 weeks gestation of pregnancy

== ENCOUNTER → 2019-04-21 13:02 | Outpatient (CLI) | payer MEDICAID ==
[2018-12-17 12:39] VITALS: BMI 30.8
== END | disposition home or self-care (01) ==
LOC: D.LDO 13:02
PROVIDERS: ATTEND Obstetrics & Gynecology
DX: O26.893 Other specified pregnancy related conditions, third trimester (principal); Z3A.37 37 weeks gestation of pregnancy; N85.8 Other specified noninflammatory disorders of uterus; M54.9 Dorsalgia, unspecified

== ENCOUNTER 2019-04-23 11:05 | Inpatient (IN) | payer MEDICAID ==
[~2019-04-23] VITALS: Ht 152.4 cm; Wt 91.6 kg
[2019-04-23 13:17] LABS: BACTERIA MODERATE /hpf (NEGATIVE); BILIRUBIN NEGATIVE (NEGATIVE); GLUCOSE NEGATIVE (NEGATIVE); KETONE NEGATIVE (NEGATIVE); NITRITE NEGATIVE (NEGATIVE); WHITE CELLS - URINE >50 /hpf (NEGATIVE)
[2019-04-23 13:57] LABS: BASOPHILS 0.1 % (0-2); EOSINOPHILS 0.9 % (0-7); HEMATOCRIT 32.3 % (36.0-48.0); HEMOGLOBIN 10.4 g/dL (12-16); IMMATURE GRANULOCYTES 0.9 % (0-5); LYMPHOCYTES 18.2 % (15-50); MCH 26.3 pg (26.0-34.0); MCHC 32.2 g/dL (31.0-37.0); MCV 81.8 fL (80.0-100.0); MEAN PLATELET VOLUME 10.6 fL (7.4-10.4); MONOCYTES 9.2 % (2-11); NEUTROPHILS 70.7 % (40-80); PLATELET COUNT 244 10x3/uL (130-400); RBC 3.95 10x6/uL (4.00-5.40); RDW 13.8 % (11.5-14.5); WBC 11.5 10x3/uL (4.8-10.8)
[2019-04-23 18:07] VITALS: BP 120/65; Ht 152.4 cm; Wt 91.6 kg
[2019-04-23 19:19] LABS: UDS - AMPHET NEGATIVE QUAL (NEGATIVE); UDS - BARB NEGATIVE QUAL (NEGATIVE); UDS - BENZO NEGATIVE QUAL (NEGATIVE); UDS - COCAINE NEGATIVE QUAL (NEGATIVE); UDS - OPIATE NEGATIVE QUAL (NEGATIVE); UDS - PCP NEGATIVE QUAL (NEGATIVE); UDS - THC NEGATIVE QUAL (NEGATIVE)
[2019-04-24 19:46] VITALS: BP 131/62
[2019-04-24 23:59] VITALS: BP 115/66
[2019-04-25 04:00] VITALS: BP 120/75
[2019-04-25 07:13] LABS: RAPID PLASMA REAGIN Non Reactive (Non Reactive)
[2019-04-25 07:31] VITALS: BP 133/76
[2019-04-25 08:51] LABS: BASOPHILS 0.1 % (0-2); EOSINOPHILS 0.8 % (0-7); HEMATOCRIT 30.9 % (36.0-48.0); HEMOGLOBIN 9.4 g/dL (12-16); IMMATURE GRANULOCYTES 0.6 % (0-5); LYMPHOCYTES 17.5 % (15-50); MCH 24.7 pg (26.0-34.0); MCHC 30.4 g/dL (31.0-37.0); MCV 81.3 fL (80.0-100.0); MEAN PLATELET VOLUME 10.8 fL (7.4-10.4); MONOCYTES 8.1 % (2-11); NEUTROPHILS 72.9 % (40-80); PLATELET COUNT 241 10x3/uL (130-400); RDW 13.9 % (11.5-14.5); WBC 12.2 10x3/uL (4.8-10.8)
[2019-04-25] MEDS ORDERED: IBUPROFEN600 MG PO (16:00)
[2019-04-25] MEDS ORDERED: CIPRO500 MG PO (16:47)
--- NOTE | 2019-04-27 09:58 | MORECARE ---
CASE MANAGEMENT DISCHARGE SUMMARY PATIENT: SAFIA ANDERSON UNIT: [id number] ADM DATE: 04/23/19 AGE: 28 : [birth year] SEX: F ROOM/BED: D.1274 AUTHOR: GATITO CUMMINGS PHYSICIAN: REFERRING PHYSICIAN: DOROTHY ALANIZ DO DATE OF SERVICE: 04/27/19 Discharge Plan Patient Name: SAFIA ANDERSON Facility: [facility]:[place] : 1990 Planned Disposition: Home Anticipated Discharge Date: 04/25/19 Discharge Date: 04/25/2019 Expected LOS: 2 Initial Reviewer: [email or web address] Initial Review Date: 04/23/2019 Generated: 04/27/19 10:57 am Patient Name: SAFIA ANDERSON Page [phone] at 0958 All edits/amendments must be made on the electronic document DICTATION DATE: 04/27/19956 STEEL ANALYST: PEDRO 04/27/1959 RPT#: [id number] DC DATE:04/25/19 STATUS: DIS IN [facility] [address] [facility] [place] [address] END OF REPORT
== END 2019-04-25 18:14 | disposition home or self-care (01) | DRG 807 ==
LOC: D.LDO 11:05 → D.LD 18:49
PROVIDERS: ADMIT Student in an Organized Health Care Education/Training Program; ATTEND Student in an Organized Health Care Education/Training Program
PROC: 10E0XZZ Delivery of Products of Conception, External Approach (ICD-10-PCS; principal; 2019-04-24)
DX: O80 Encounter for full-term uncomplicated delivery (principal); Z37.0 Single live birth; Z3A.37 37 weeks gestation of pregnancy

== ENCOUNTER 2019-08-13 19:46 | Emergency (ER) | payer MEDICAID ==
[~2019-08-13] VITALS: Ht 152.4 cm; Wt 72.7 kg
[~2019-08-13 19:46] MED LIST changes: +CIPRO500 MG PO
[2019-08-13 19:58] VITALS: Ht 152.4 cm; Wt 72.7 kg
[2019-08-13 21:13] LABS: BILIRUBIN NEGATIVE (NEGATIVE); GLUCOSE NEGATIVE (NEGATIVE); KETONE NEGATIVE (NEGATIVE); NITRITE POSITIVE (NEGATIVE); SPECIFIC GRAVITY 1.025 (1.005-1.020); UROBILINOGEN NORMAL (NORMAL)
[2019-08-13 21:18] LABS: BACTERIA MANY /hpf (NEGATIVE); EPITHELIAL CELLS 0-5 /hpf (0-5); RED CELLS - URINE OCC /hpf (0-5); WHITE CELLS - URINE 0-5 /hpf (NEGATIVE)
[2019-08-13 21:22] LABS: HCG URINE NEGATIVE (NEGATIVE)
[2019-08-13] MEDS ORDERED: KEFLEX500 MG PO (21:30)
[2019-08-13] MEDS ORDERED: FLUTICASONE PRO16 GM NASAL (21:31)
[2019-08-13] MEDS ORDERED: ZYRTEC10 MG PO (21:31)
[2019-08-13 22:23] VITALS: BP 112/75
== END 2019-08-13 22:24 | disposition home or self-care (01) ==
LOC: D.ER 19:46
PROVIDERS: Family Medicine
DX: N39.0 Urinary tract infection, site not specified (principal); R10.9 Unspecified abdominal pain; H65.03 Acute serous otitis media, bilateral; R11.0 Nausea

== ENCOUNTER 2019-10-25 16:10 | Emergency (ER) | payer MEDICAID ==
[~2019-10-25] VITALS: Ht 152.4 cm; Wt 68.2 kg
[~2019-10-25 16:10] MED LIST changes: +FLUTICASONE PRO16 GM NASAL; +KEFLEX500 MG PO; +ZYRTEC10 MG PO
[2019-10-25 16:16] VITALS: Ht 152.4 cm; Wt 68.2 kg
[2019-10-25 18:47] LABS: NITRITE NEGATIVE (NEGATIVE)
[2019-10-25 18:48] LABS: BILIRUBIN NEGATIVE (NEGATIVE); KETONE NEGATIVE (NEGATIVE); UROBILINOGEN NORMAL (NORMAL)
[2019-10-25 18:51] LABS: BACTERIA FEW /hpf (NONE SEEN); RED CELLS - URINE 0-5 /hpf (0-5)
[2019-10-25 18:52] LABS: HCG URINE POSITIVE (NEGATIVE)
[2019-10-25] MEDS ORDERED: KEFLEX500 MG PO (19:02)
[2019-10-25] MEDS ORDERED: MACROBID100 MG PO (19:02)
[2019-10-25 19:18] VITALS: BP 123/68
== END 2019-10-25 19:19 | disposition home or self-care (01) ==
LOC: D.ER 16:10
PROVIDERS: Family Medicine
DX: J32.9 Chronic sinusitis, unspecified (principal); N39.0 Urinary tract infection, site not specified; R51 Headache; R05 Cough

== ENCOUNTER 2019-11-01 18:20 | Emergency (ER) | payer MEDICAID ==
[~2019-11-01] VITALS: Ht 152.4 cm; Wt 68.2 kg
[2019-11-01 18:23] VITALS: Ht 152.4 cm; Wt 68.2 kg
[2019-11-01 21:10] VITALS: BP 113/70
== END 2019-11-01 21:10 | disposition home or self-care (01) ==
LOC: D.ER 18:20
DX: Z04.71 Encounter for examination and observation following alleged adult physical abuse (principal); R10.9 Unspecified abdominal pain

== ENCOUNTER 2019-11-20 15:45 | Emergency (ER) | payer MEDICAID ==
[~2019-11-20] VITALS: Ht 152.4 cm; Wt 78.2 kg
[2019-11-20 16:07] VITALS: Ht 152.4 cm; Wt 78.2 kg
[2019-11-20 16:45] LABS: BASOPHILS 0.1 % (0-2); EOSINOPHILS 1.6 % (0-7); HEMOGLOBIN 11.8 g/dL (12-16); IMMATURE GRANULOCYTES 0.4 % (0-5); LYMPHOCYTES 25.3 % (15-50); MCH 28.5 pg (26.0-34.0); MCHC 32.8 g/dL (31.0-37.0); MONOCYTES 7.5 % (2-11); NEUTROPHILS 65.1 % (40-80); PLATELET COUNT 285 10x3/uL (130-400); RBC 4.14 10x6/uL (4.00-5.40); RDW 13.3 % (11.5-14.5); WBC 10.9 10x3/uL (4.8-10.8)
[2019-11-20 16:56] LABS: CALC OSMOLALITY 267 mosm/kg (275-300); CALCIUM 9.5 mg/dL (8.5-10.1); CARBON DIOXIDE 29.2 mmol/L (21.0-32.0); CHLORIDE - SERUM 103 mmol/L (98-107); CREATININE - SERUM 0.5 mg/dL (0.6-1.3); GLUCOSE 90 mg/dL (74-106); POTASSIUM - SERUM 3.9 mmol/L (3.5-5.1); SODIUM 135 mmol/L (136-145); UREA NITROGEN 7 mg/dL (7-18); eGFR NON AFRICAN AMERICAN > 90 mL/min (90-120)
[2019-11-20 17:04] LABS: ALBUMIN 3.5 g/dL (3.4-5.0); ALKALINE PHOSPHATASE 61 U/L (30-120); ALT (SGPT) 26 U/L (10-68); BILIRUBIN - TOTAL 0.31 mg/dL (0.2-1.3); PROTEIN - SERUM 7.6 g/dL (6.4-8.2)
[2019-11-20 17:15] LABS: BILIRUBIN NEGATIVE (NEGATIVE); KETONE NEGATIVE (NEGATIVE); NITRITE NEGATIVE (NEGATIVE); UROBILINOGEN NORMAL mg/dL (< 2)
[2019-11-20 17:16] LABS: BACTERIA MODERATE HPF (NONE SEEN); EPITHELIAL CELLS 0-5 /hpf (0-5); WHITE CELLS - URINE 0-5 HPF (0-4)
[2019-11-20] MEDS ORDERED: MACROBID100 MG PO (21:52)
[2019-11-20 22:19] VITALS: BP 102/64
== END 2019-11-20 22:19 | disposition home or self-care (01) ==
LOC: D.ER 15:45
PROVIDERS: Emergency Medicine
DX: O23.41 Unspecified infection of urinary tract in pregnancy, first trimester (principal); Z3A.11 11 weeks gestation of pregnancy; O26.851 Spotting complicating pregnancy, first trimester; R10.30 Lower abdominal pain, unspecified

== ENCOUNTER 2020-05-19 10:45 | Outpatient (CLI) | payer MEDICAID ==
[2019-11-20 16:07] VITALS: BMI 33.6
[2020-05-19 13:14] LABS: BILIRUBIN NEGATIVE (NEGATIVE); KETONE NEGATIVE (NEGATIVE); NITRITE NEGATIVE (NEGATIVE); UROBILINOGEN 4 mg/dL (< 2)
[2020-05-19 13:16] LABS: BACTERIA MODERATE HPF (NONE SEEN)
== END 2020-05-19 15:00 | disposition home or self-care (01) ==
LOC: D.LDO 10:45
PROVIDERS: ATTEND Obstetrics & Gynecology
DX: O35.9XX0 Maternal care for (suspected) fetal abnormality and damage, unspecified, not applicable or unspecified (principal)

== ENCOUNTER 2020-05-24 15:44 | Emergency (ER) | payer MEDICAID ==
[~2020-05-24] VITALS: Ht 152.4 cm; Wt 89.5 kg
[2020-05-24 15:53] VITALS: BP 144/81; Ht 152.4 cm; Wt 89.5 kg
[2020-05-24] MEDS ORDERED: DULCOLAX STOOL100 MG PO (16:27)
[2020-05-24] MEDS ORDERED: MIRALAX17 GM PO (16:27)
[2020-05-24] MEDS ORDERED: TUCKS MEDICATE1 EACH TOPICAL (16:28)
[2020-05-24] MEDS ORDERED: ANUSOL-HC 2.5%30 GM RC (16:28)
== END 2020-05-24 16:46 | disposition home or self-care (01) ==
LOC: D.ER 15:44
DX: O26.893 Other specified pregnancy related conditions, third trimester (principal); K59.00 Constipation, unspecified; Z3A.38 38 weeks gestation of pregnancy

== ENCOUNTER 2020-06-02 15:05 | Outpatient (CLI) | payer MEDICAID ==
[2020-05-24 15:53] VITALS: BMI 38.5
[~2020-06-02 15:05] MED LIST changes: +ANUSOL-HC 2.5%30 GM RC; +DULCOLAX STOOL100 MG PO; +TUCKS MEDICATE1 EACH TOPICAL
[2020-06-04] MEDS ORDERED: MUPIROCIN22 GM TOPICAL (13:56)
== END 2020-06-02 16:57 | disposition home or self-care (01) ==
LOC: D.LDO 15:05
PROVIDERS: ATTEND Student in an Organized Health Care Education/Training Program
DX: O47.9 False labor, unspecified (principal)

== ENCOUNTER → 2020-06-04 | Emergency (ER) | payer MEDICAID ==
[~2020-06-04] VITALS: Ht 152.4 cm; Wt 88.6 kg
[~2020-06-04] MED LIST changes: +MUPIROCIN22 GM TOPICAL
[2020-06-04 12:52] VITALS: BP 125/76; Ht 152.4 cm; Wt 88.6 kg
== END | disposition home or self-care (01) ==
LOC: D.ER 12:48
DX: T22.112A Burn of first degree of left forearm, initial encounter (principal); X12.XXXA Contact with other hot fluids, initial encounter; Y93.9 Activity, unspecified; Y92.9 Unspecified place or not applicable

== ENCOUNTER 2020-06-06 04:47 | Inpatient (IN) | payer MEDICAID ==
[~2020-06-06] VITALS: Ht 152.4 cm; Wt 89.8 kg
[2020-06-06 06:14] VITALS: BP 113/67; BMI 38.7
[2020-06-06 06:21] LABS: UDS - AMPHET NEGATIVE QUAL (NEGATIVE); UDS - BARB NEGATIVE QUAL (NEGATIVE); UDS - BENZO NEGATIVE QUAL (NEGATIVE); UDS - COCAINE NEGATIVE QUAL (NEGATIVE); UDS - OPIATE NEGATIVE QUAL (NEGATIVE); UDS - PCP NEGATIVE QUAL (NEGATIVE); UDS - THC NEGATIVE QUAL (NEGATIVE)
[2020-06-06 06:25] LABS: HEMATOCRIT 28.4 % (36.0-48.0); HEMOGLOBIN 8.3 g/dL (12-16); MCH 21.9 pg (26.0-34.0); MCHC 29.2 g/dL (31.0-37.0); MCV 74.9 fL (80.0-100.0); MEAN PLATELET VOLUME 10.4 fL (7.4-10.4); RBC 3.79 10x6/uL (4.00-5.40); WBC 8.9 10x3/uL (4.8-10.8)
[2020-06-06 13:34] VITALS: Ht 152.4 cm; Wt 89.8 kg
[2020-06-06 18:33] VITALS: BP 103/67
--- NOTE | 2020-06-06 18:40 | NUR ---
PM ASSESSMENT COMPLETED, PT AAOX4, VSS AFEBRILE, TOLERATING PO INTAKE, REQUESTS MORE FOOD-NOTIFIED TABLE COVER FOLDER SINCE NOTHING IN PATIENT REFRIGERATOR AT THIS TIME. NOTHING AVAILABLE PER TABLE COVER FOLDER-WILL ORDER PIZZA FOR PT-PT STATES HAS NO MONEY UNTIL FIRST OF MONTH. PROVIDED LEMON NULATO SODA UPON REQUEST. LANDIS FREELY, WILL MONITOR FOR NEXT VOID, REVIEWED PLAN OF CARE WITH PT AND SO; PT AND SO STATE UNDERSTANDING OF ALL INSTRUCTION PROVIDED, WILL CONTINUE TO MONITOR.
--- NOTE | 2020-06-06 20:30 | NUR ---
PT ROUNDS COMPLETED, PT WITH IN ARMS AND BOTTLEFEEDING. NAD NOTED. WILL MONITOR
--- NOTE | 2020-06-06 21:25 | NUR ---
EPIDURAL CATH REMOVED, BLACK TIP SHOWN TO PT, PT TOLERATES PROCEDURE WELL.
--- NOTE | 2020-06-06 21:36 | NUR ---
PT OOB TO BR, VOIDS QS WITHOUT DIFFICULTY, INSTRUCTIONS GIVEN ON PERICARE USING BETADINE/WATER PERIBOTTLE, PT DEMONSTRATES PROPER USE, MESH PANTIES AND PERIPADS PLACED, FF AT U/1 AND MIDLINE NOW. LOCHIA RUBRA LIGHT TO MODERATE AMOUNT, NO CLOTS OBSERVED. STEADY GAIT. PT TRANSFERRED TO ROOM 1273-A WITH AND ALL PERSONAL BELONGINGS.
--- NOTE | 2020-06-06 22:25 | NUR ---
PT C/O LOW ABD CRAMPING AND PERINEAL ACHING, PRN MOTRIN, DERMOPLAST, AND TUCKS PADS GIVEN WITH INSTRUCTIONS ON USE, PT DEMONSTRATES PROPER USE, LABIAL EDEMA 2+ NOTED, ICE PACK APPLIED TO PERINEUM, FF AT U/1 AND MIDLINE, LOCHIA RUBRA MODERATE AMOUNT, NO CLOTS OBSERVED. IN ROLLING CRIB ADJACENT TO BED ALSO NAD NOTED. C/L IN EASY REACH OF PT, BED IN LOW POSITION, BED BRAKES LOCKED. WILL MONITOR.
--- NOTE | 2020-06-06 23:22 | NUR ---
ROUNDS COMPLETED, PAIN REASSESSMENT 2 OUT OF 3 OF 10. FF AT U/1 AND MIDLINE, LOCHIA RUBRA SMALL AMOUNT NOTED TO PERIPAD NO CLOTS. TOLERATING PO INTAKE, PT REQUESTS SNACK, REMINDED PT SHE HAD PIZZA, AND STATES "OH OKAY I FORGOT." PLACED PIZZA WITHIN EASY REACH OF PT, CUP OF ICE WATER PROVIDED. NO OTHER NEEDS AT THIS TIME. C/L IN EASY REACH OF PT, WILL MONITOR.
--- NOTE | 2020-06-07 00:45 | NUR ---
ROUNDS COMPLETED, PT RESTING WITH EYES CLOSED, RESP EVEN AND UNLABORED, C/L IN EASY REACH OF PT. NAD NOTED. WILL MONITOR.
--- NOTE | 2020-06-07 02:30 | NUR ---
ROUNDS COMPLETED, PT RESTING WITH EYES CLOSED, RESP EVEN AND UNLABORED, C/L IN EASY REACH OF PT, NAD NOTED. WILL MONITOR.
--- NOTE | 2020-06-07 04:16 | NUR ---
ROUNDS COMPLETED, PT RESTING WITH EYES CLOSED, RESP EVEN AND UNLABORED, NAD NOTED. C/L IN EASY REACH, WILL MONITOR FOR CHANGES.
[2020-06-07 05:11] LABS: RAPID PLASMA REAGIN Non Reactive (Non Reactive)
--- NOTE | 2020-06-07 06:22 | NUR ---
ROUNDS COMPLETED, REPORTS PAIN RATED 8 OUT OF 10 DESCRIBES CRAMPING IN BACK AND LOW ABD; PRN MOTRIN GIVEN. CUP OF ICE WATER ALSO PROVIDED. DENIES OTHER NEEDS AT THIS TIME, C/L IN EASY REACH. WILL MONITOR.
[2020-06-07 07:20] VITALS: BP 126/62
--- NOTE | 2020-06-07 07:20 | NUR ---
PATIENT ASSESSMENT COMPLETED AT BEDSIDE. PATIENT COMPLAINS OF PAIN 3/10 IN PERINAL AREA. STATES "IT'S GOTTEN BETTER SINCE I GOT THE MEDICATION". PIV IN LEFT HAND SALINED LOCKED. NO SIGNS AND SYMPTOMS OF INFECTION NOTED. FUNDUS FIRM AND MIDLINE, U -2. BLEEDING SCANT. PATIENT EDUCATED ON WHEN TO CALL NURSE IF BLEEDING INCREASES OR WHAT PROPER BLEEDING LOOKS LIKE. PATIENT VERBALIZED UNDERSTANDING. SIDE RAILS UP X2, BED IN LOW POSITION, CALL LIGHT WITHIN REACH.
[2020-06-07 09:20] LABS: BASOPHILS 0.1 % (0-2); EOSINOPHILS 1.5 % (0-7); HEMATOCRIT 29.4 % (36.0-48.0); HEMOGLOBIN 8.7 g/dL (12-16); IMMATURE GRANULOCYTES 0.6 % (0-5); LYMPHOCYTES 17.4 % (15-50); MCH 22.1 pg (26.0-34.0); MCHC 29.6 g/dL (31.0-37.0); MCV 74.8 fL (80.0-100.0); MEAN PLATELET VOLUME 10.1 fL (7.4-10.4); NEUTROPHIL ABS# 7.58 10x3/uL (1.56-6.13); NEUTROPHILS 73.4 % (40-80); RBC 3.93 10x6/uL (4.00-5.40); RDW 15.9 % (11.5-14.5); WBC 10.3 10x3/uL (4.8-10.8)
[2020-06-07 09:22] LABS: PLATELET COUNT 243 10x3/uL (130-400)
--- NOTE | 2020-06-07 09:49 | NUR ---
PIV REMOVED USING ASEPTIC TECHNIQUE. PATIENT TOLERATED WELL. TIP INTACT.
--- NOTE | 2020-06-07 12:48 | NUR ---
PATIENT GIVEN DEPO SHOT IN LEFT DELTOID. TOLERATED WELL. PATIENT DENIES ADDITIONAL NEEDS AT THIS TIME. SIDE RAILS UP X2, BED IN LOW POSITION, CALL LIGHT WITHIN REACH.
--- NOTE | 2020-06-07 16:41 | NUR ---
PATIENT TO BE DISCHARGED TO ROOMING IN STATUS IN STABLE CONDITION. PATIENT MEETS ALL CONDITIONS PER MD TO BE DISCHARGED HOME, UNABLE TO GO HOME SECONDARY TO STILL INPATIENT. SIGNIFICANT OTHER AT BEDSIDE WHEN DISCHARGE PAPERWORK DISCUSSED. NO QUESTIONS OR CONCERNS NOTED WITH INFORMATION GIVEN. PATIENT VERBALIZED UNDERSTANDING.
== END 2020-06-07 16:45 | disposition home or self-care (01) | DRG 807 ==
LOC: D.LD 04:47
PROVIDERS: ADMIT Student in an Organized Health Care Education/Training Program; ATTEND Student in an Organized Health Care Education/Training Program
PROC: 10E0XZZ Delivery of Products of Conception, External Approach (ICD-10-PCS; principal; 2020-06-06)
PROC: 10907ZC Drainage of Amniotic Fluid, Therapeutic from Products of Conception, Via Natural or Artificial Opening (ICD-10-PCS; 2020-06-06)
PROC: 3E033VJ Introduction of Other Hormone into Peripheral Vein, Percutaneous Approach (ICD-10-PCS; 2020-06-06)
PROC: 0HQ9XZZ Repair Perineum Skin, External Approach (ICD-10-PCS; 2020-06-06)
DX: O99.824 Streptococcus B carrier state complicating childbirth (principal); Z37.0 Single live birth; Z3A.40 40 weeks gestation of pregnancy; O99.02 Anemia complicating childbirth; D64.9 Anemia, unspecified; O77.0 Labor and delivery complicated by meconium in amniotic fluid; O76 Abnormality in fetal heart rate and rhythm complicating labor and delivery; O69.81X0 Labor and delivery complicated by cord around neck, without compression, not applicable or unspecified; O70.0 First degree perineal laceration during delivery